=== PATIENT | female | born 1990 | race Caucasian/White ===

== ENCOUNTER 2020-06-04 15:53 | Emergency (ER) | payer OTHER ==
[~2020-06-04] VITALS: Ht 165.1 cm; Wt 158.8 kg
[2020-06-04 16:00] VITALS: BP_SYST 155; BP_SYST 183; BP_DIAS 101; BP_DIAS 94
--- NOTE | 2020-06-04 16:20 | NUR ---
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 PT DENIES LOC, N/V SINCE INCIDENT.
[2020-06-04] MEDS ORDERED: KETOROLAC 60 MG/2 ML VIAL IM ONE (16:30)
--- NOTE | 2020-06-04 16:30 | NUR ---
Dr. Lewis evaluating pt at bedside
[2020-06-04 17:42] VITALS: BP 155/94
== END 2020-06-04 17:45 | disposition home or self-care (01) ==
LOC: MED 15:53
DX: S00.03XA Contusion of scalp, initial encounter (principal); E11.9 Type 2 diabetes mellitus without complications; W20.8XXA Other cause of strike by thrown, projected or falling object, initial encounter; Y93.89 Activity, other specified; Y92.89 Other specified places as the place of occurrence of the external cause; Y99.8 Other external cause status
CPT/HCPCS: 70250; 96372; 99283; J1885

== ENCOUNTER 2022-08-19 08:23 | Emergency (ER) | payer OTHER ==
[~2022-08-19] VITALS: Ht 175.3 cm; Wt 135.4 kg
[2022-08-19] MEDS ORDERED: ACETAMINOPHEN EXTRA STRENGTH 500 MG TAB PO ONE (08:30)
[2022-08-19 08:33] VITALS: BP 151/68
--- NOTE | 2022-08-19 08:33 | NUR ---
Patient ambulated to bed 8.
--- NOTE | 2022-08-19 08:54 | NUR ---
Ultrasound at bedside.
[2022-08-19 08:58] LABS: APPEARANCE,URINE CLEAR (CLEAR); BILIRUBIN,URINE NEGATIVE (NEGATIVE); BLOOD, URINE 3+ (NEGATIVE); COLOR,URINE YELLOW (YELLOW); LEUKOCYTE ESTERASE ,URINE NEGATIVE (NEGATIVE); NITRITE, URINE NEGATIVE (NEGATIVE); UGLUCOSE NEGATIVE (NEGATIVE)
--- NOTE | 2022-08-19 09:06 | NUR ---
Lab at bedside.
[2022-08-19 09:11] LABS: RBC,URINE NONE SEEN /HPF (0-5)
--- NOTE | 2022-08-19 09:20 | NUR ---
32 y/o female bib self with c/o pelvic cramping pain and low back pain x yesterday. Patient also has light bleeding that started today. LMP 07/12/22. Patient has not been seen by OBGYN. Medical History: CAREN NKDA
[2022-08-19 09:29] LABS: BASOPHILS % (AUTO) 0.3 % (0.0-2.0); EOSINOPHILS % (AUTO) 0.3 % (0.0-4.0); HEMATOCRIT 38.3 % (36-48); HEMOGLOBIN 13.2 g/dL (12.0-16.0); LYMPHOCYTES # (AUTO) 1.9 K/uL (2.5-16.5); LYMPHOCYTES % (AUTO) 22.4 % (20.5-51.1); MEAN CORPUSCULAR HEMOGLOBIN 28 pg (27-31); MEAN CORPUSCULAR HGB CONC 34 g/dL (33-37); MEAN CORPUSCULAR VOLUME 82.6 fL (80-94); MONOCYTES # (AUTO) 0.4 K/uL (0.8-1.0); MONOCYTES % (AUTO) 4.4 % (1.7-9.3); NEUTROPHILS # (AUTO) 6.1 K/uL (1.8-7.7); NEUTROPHILS % (AUTO) 72.6 % (42.2-75.2); PLATELET COUNT (AUTO) 272 K/uL (140-450); RED BLOOD CELL COUNT(AUTO) 4.64 MIL/uL (4.20-5.40); WHITE BLOOD COUNT (AUTO) 8.4 K/uL (4.8-10.8)
[2022-08-19] MEDS ORDERED: PREN-500 PO (11:18)
--- NOTE | 2022-08-19 11:39 | NUR ---
Ella Thomas evaluating patient at bedside.
[2022-08-19 11:53] VITALS: BP 140/78
--- NOTE | 2022-08-19 11:53 | NUR ---
Patient discharged with v/s stable. Written and verbal after care instructions given. Patient alert, oriented and verbalized understanding of instructions. Ambulatory with steady gait. All questions addressed prior to discharge. ID band removed. Patient advised to follow up with PMD. Rx of Vitamin given. Opportunity to ask questions provided and answered.
--- NOTE | 2022-08-19 11:54 | NUR ---
The patient's care was reviewed and supervised by Donna Christopher RN.
== END 2022-08-19 11:53 | disposition home or self-care (01) ==
LOC: MED 08:23
DX: O20.0 Threatened abortion (principal); O34.81 Maternal care for other abnormalities of pelvic organs, first trimester; N83.202 Unspecified ovarian cyst, left side; R82.81 Pyuria; E11.9 Type 2 diabetes mellitus without complications; Z3A.01 Less than 8 weeks gestation of pregnancy; Z79.4 Long term (current) use of insulin; Z79.899 Other long term (current) drug therapy
CPT/HCPCS: 36415; 76817; 81001; 81025; 84702; 85025; 86900; 86901; 87086; 99284; Q0092

== ENCOUNTER 2022-12-26 03:03 | Emergency (ER) | payer OTHER ==
[~2022-12-26] VITALS: Ht 170.2 cm; Wt 134.7 kg
[~2022-12-26 03:03] MED LIST: PREN-500 PO
[2022-12-26 03:10] VITALS: BP 181/90
--- NOTE | 2022-12-26 03:13 | NUR ---
TO LOBBY A/W BED AMBULATORY
--- NOTE | 2022-12-26 03:37 | NUR ---
PT TO BED 4
--- NOTE | 2022-12-26 03:40 | NUR ---
RT EAR PAIN SINCE WEDNESDAY NIGHT, HEAD PRESSURE, TOOTH ACHE
[2022-12-26] MEDS ORDERED: methocarbamoL 500 MG TAB PO STA (04:18)
[2022-12-26] MEDS ORDERED: KETOROLAC 15 MG/ML VIAL IM ONE (04:20)
[2022-12-26] MEDS ORDERED: HYDROcodone/APAP 5/325 MG 1 TAB TAB PO ONE (04:20)
[2022-12-26] MEDS ORDERED: GABA300C PO (05:11)
[2022-12-26] MEDS ORDERED: METH-1681 PO (05:11)
[2022-12-26] MEDS ORDERED: IBUP-2213 PO (05:11)
[2022-12-26 05:20] VITALS: BP 181/90
--- NOTE | 2022-12-26 05:20 | NUR ---
Patient discharged with v/s stable. Written and verbal after care instructions given and explained. Patient alert, oriented and verbalized understanding of instructions. Ambulatory with steady gait. All questions addressed prior to discharge. ID band removed. Patient advised to follow up with PMD. Rx of NEURONTIN, IBUPROFEN, ROBAXIN given. Patient educated on indication of medication including possible reaction and side effects. Opportunity to ask questions provided and answered.
== END 2022-12-26 05:20 | disposition home or self-care (01) ==
LOC: MED 03:03
DX: H92.01 Otalgia, right ear (principal); E11.9 Type 2 diabetes mellitus without complications; Z79.4 Long term (current) use of insulin; Z79.899 Other long term (current) drug therapy
CPT/HCPCS: 96372; 99283; J1885

== ENCOUNTER 2023-02-23 17:35 | Emergency (ER) | payer OTHER ==
[~2023-02-23] VITALS: Ht 170.2 cm; Wt 138.3 kg
[~2023-02-23 17:35] MED LIST changes: +GABA300C PO; +IBUP-2213 PO; +METH-1681 PO
[2023-02-23 17:52] VITALS: BP 155/100
[2023-02-23] MEDS ORDERED: KETOROLAC 30 MG/ML VIAL IM ONE (19:05)
[2023-02-23] MEDS ORDERED: SUD30 PO (19:20)
[2023-02-23] MEDS ORDERED: AMOX-999 PO (19:20)
[2023-02-23] MEDS ORDERED: NAPR-54 PO (19:20)
--- NOTE | 2023-02-23 19:30 | NUR ---
URINE GIVEN TO LAB.
[2023-02-23 20:00] VITALS: BP 130/90
--- NOTE | 2023-02-23 20:00 | NUR ---
Patient discharged with v/s stable. Written and verbal after care instructions given and explained. Patient alert, oriented and verbalized understanding of instructions. Ambulatory with steady gait. All questions addressed prior to discharge. ID band removed. Patient advised to follow up with PMD. Rx of AUGMENTIN, NAPROSYN, SUDAFED given. Patient educated on indication of medication including possible reaction and side effects. Opportunity to ask questions provided and answered.
== END 2023-02-23 20:00 | disposition home or self-care (01) ==
LOC: MED 17:35
DX: J32.9 Chronic sinusitis, unspecified (principal); E11.9 Type 2 diabetes mellitus without complications; Z79.4 Long term (current) use of insulin; Z79.899 Other long term (current) drug therapy
CPT/HCPCS: 81025; 96372; 99283; J1885